=== PATIENT | male | born 1965 | race Caucasian/White ===

== ENCOUNTER 2024-04-20 03:52 | Emergency (ER) | payer MEDICAID ==
[~2024-04-20] VITALS: Ht 167.6 cm; Wt 110.0 kg
[~2024-04-20 03:52] MED LIST: INSU100I28 SQ; METF500T PO; SULF1TAB48 MT
[2024-04-20 04:02] VITALS: O2SAT 98
[2024-04-20 04:04] VITALS: BP 168/101; PULSE 88; RESP 18; TEMP 98.2; O2SAT 99
[2024-04-20] MEDS: KETOROLAC 15MG/ML VIAL IM SCH (07:18)
== END 2024-04-20 07:18 | disposition left against medical advice (07) ==
LOC: ER 03:52
DX: M65.90 Unspecified synovitis and tenosynovitis, unspecified site (principal); E11.9 Type 2 diabetes mellitus without complications; Z98.890 Other specified postprocedural states
CPT/HCPCS: 73130; 99283